=== PATIENT | male | born 1960 | race African-American/Black ===

== ENCOUNTER 2017-09-17 09:03 | Emergency (ER) | payer OTHER ==
[2017-09-17] MEDS: cloNIDine HCL 0.1 MG TABLET PO ×2 (10:38)
[2017-09-17] MEDS: CYCLOBENZAPRINE 10 MG TABLET. PO ×2 (10:39)
== END 2017-09-17 11:15 | disposition home or self-care (01) ==
LOC: ER 09:03
DX: M62.838 Other muscle spasm (principal); I10 Essential (primary) hypertension; E11.9 Type 2 diabetes mellitus without complications; E78.00 Pure hypercholesterolemia, unspecified
CPT/HCPCS: 99284